=== PATIENT | male | born 1980 | race Caucasian/White ===

== ENCOUNTER 2024-05-29 23:43 | Emergency (ER) | payer SELFPAY ==
[2024-05-29 23:44] VITALS: BP 176/110
[2024-05-30 00:44] VITALS: BMI 36.3
--- NOTE | 2024-05-30 00:49 | ED.GENMED ---
History of Present Illness
General
Chief Complaint: Blood Pressure Problem
Source: patient and spouse
Exam Limitations: none
Time Seen by Provider: 05/30/24 00:31
History of Present Illness
History of Present Illness:
Patient presents with concerns for blood pressure. He started losartan low-dose earlier this week. Known history of borderline hypertension. 4 days ago he had a severe headache was seen at a hospital. Had labs and a CT scan that were
unremarkable. Recommended close follow-up with his primary who started losartan the next day. Was told to double up the losartan if blood pressure did not improve after 3 days. Tonight after a bar mitzvah he checked his blood pressure was
concerned with the elevation. He has no symptoms. He denies chest pain shortness of breath headache nausea vomiting neurologic symptoms etc.
Past History
Past History
ED Past Medical History: HTN and Psychiatric (Anxiety)
ED Past Surgical History: Appendectomy, Orthopedic, Urological and Other (Hernia repair)
Review of Systems
Review of Systems
All Other Systems: Not applicable
Constitutional: Denies fever
Respiratory: Reports no symptoms
Cardiac: Reports no symptoms
Neurological: Reports no symptoms
Phy Exam
Physical Exam
Physical Exam:
GENERAL: Alert and oriented in no apparent distress
EYE: Orbits normal.
NECK: Supple, no significant adenopathy.
ENT: Pharynx without erythema
CARDIAC: Regular rate and rhythm without any obvious murmurs.
LUNGS: Clear breath sounds,normal
ABDOMEN: Soft, without focal tenderness or distention
NEUROLOGICAL: Alert and oriented , cranial nerves II through XII intact. Speech normal. Packaging Materials Inspector normal. Gait normal.
SKIN: Warm and dry, no rash or lesion, no discoloration, skin intact.
MUSCULOSKELETAL: No edema,no deformity.Good color
PSYCH: Normal and appropriate interaction.
Course
Vital Signs
Initial and Last Documented VS:
Initial Vital Signs
Temp Pulse Resp BP Pulse Ox
97.8 F 124 24 176/110 100
05/29/24 23:44 05/29/24 23:44 05/29/24 23:44 05/29/24 23:44 05/29/24 23:44
Last Documented Vital Signs
Temp Pulse Resp BP Pulse Ox
97.8 F 78 12 144/88 100
05/29/24 23:44 05/30/24 01:30 05/30/24 01:30 05/30/24 01:30 05/29/24 23:44
MDM/Problems Addressed
Differential Diagnosis Includes:
Asymptomatic hypertension. Workup earlier in the week for headache was unremarkable. No indication for repeat radiologic testing as patient is asymptomatic at this time. Will monitor blood pressure and reevaluate
*Pulse Oximetry
Patient hypoxic: no
*Critical Care Note
Total Time (30-74mins, 75-104mins- exclusive of procedures): Not Applicable
Update Note
Update Note:
Last blood pressure 144/88. Medically stable asymptomatic. Discharged to follow-up
ED Attending Note
-
Portions of this chart may have been created with voice recognition software.� Occasional wrong word or��sound alike� substitutions may have occurred due to the inherent limitations of voice recognition software.
Discharge Plan
Departure
Patient Disposition: Home (Routine Discharge)
Date of Disposition: 05/30/24
Time of Disposition: 01:42
Patient with high blood pressure during this ER visit?: Yes
Discharge Problem:
Hypertension
Instructions: High Blood Pressure (DC), BLOOD PRESSURE
Prescriptions:
No Action
atorvastatin 20 mg Tablet
20 mg PO DAILY
losartan 25 mg Tablet
25 mg PO DAILY
oxycodone-acetaminophen [Percocet] 7.5-325 mg Tablet
1 tab PO Q6H PRN (Reason: rheumatoid arthrits, spinal fusion)
Activity Restrictions/Additional Instructions:
Follow-up closely with your primary physician
Interventions
Interventions:
*Risk Screen - Suicide Last Done: 05/29/24 23:44
*General Assessment Last Done: 05/30/24 00:44
*Neglect/Abuse Screening Last Done: 05/29/24 23:44
*ED- Fall Risk Assessment Last Done: 05/30/24 00:44
*ED COVID-19 Vaccine History Last Done: 05/30/24 00:44
ED- Cardiac Assessment Last Done: 05/30/24 00:57
ED- Neurological Assessment Last Done: 05/30/24 00:57
ED- Pulmonary Assessment Last Done: 05/30/24 00:57
Discharge Date and Time
Print Language: [place]
[2024-05-30 00:55] VITALS: BP 166/88
[2024-05-30 01:00] VITALS: BP 153/89
[2024-05-30 01:30] VITALS: BP 144/88
== END 2024-05-30 02:00 | disposition home or self-care (01) ==
LOC: EMR 23:43
PROVIDERS: EMERGENCY PHYSICIAN Emergency Medicine
DX: I10 Essential (primary) hypertension (principal); F41.9 Anxiety disorder, unspecified; Z88.2 Allergy status to sulfonamides; Z88.8 Allergy status to other drugs, medicaments and biological substances
CPT/HCPCS: 99282